=== PATIENT | female | born 1980 | race African-American/Black ===

== ENCOUNTER 2017-04-22 13:15 | Emergency (ER) | payer SELFPAY ==
[~2017-04-22] VITALS: Ht 30.5 cm; Wt 0.5 kg
[2017-04-22 13:25] VITALS: BP 113/65
[2017-04-22] MEDS ORDERED: ACETAMINOPHEN 500 MG TAB PO ONE (13:30)
== END 2017-04-22 15:03 | disposition home or self-care (01) ==
LOC: ER 13:15
DX: S10.93XA Contusion of unspecified part of neck, initial encounter (principal); S80.11XA Contusion of right lower leg, initial encounter; S20.212A Contusion of left front wall of thorax, initial encounter; V43.52XA Car driver injured in collision with other type car in traffic accident, initial encounter; Y93.89 Activity, other specified; Y99.8 Other external cause status; Y92.89 Other specified places as the place of occurrence of the external cause